=== PATIENT | female | born 1950 | race Caucasian/White ===

== ENCOUNTER 2021-04-24 01:07 | Outpatient (CLI) | payer OTHER, SELFPAY ==
[2021-04-24 12:33] LABS: Source Nasal/Nares
[2021-04-24 16:47] LABS: COVID-19 PCR Negative (Negative)
== END 2021-04-24 01:08 | disposition home or self-care (01) ==
PROVIDERS: PCP Registered Nurse; Visit Provider Ophthalmology
DX: Z20.822 Contact with and (suspected) exposure to COVID-19 (principal); Z01.818 Encounter for other preprocedural examination
CPT/HCPCS: 87635

== ENCOUNTER 2021-04-26 08:11 | Day surgery (SDC) | payer OTHER, SELFPAY ==
[2021-04-26 08:30] VITALS: BP 143/85; PULSE 63; RESP 16; TEMP 36.2; O2SAT 97
[2021-04-26] MEDS: Tropicam./Phenyleph. (1/2.5%) 5 ML BTL OS ×3 (08:40→08:50)
--- NOTE | 2021-04-26 09:33 | W.ANESPRE ---
General Info Date of Service Date Performed: 04/26/21 Height: 5 ft 2 in Weight: 71.7 kg Body Mass Index (BMI): 28.9 Surgical Procedure: Operation Date: 04/26/21 09:55 Proposed Procedure Side Surgeon p Cataract Extraction with IOL Implant Left Louis Bronson MD Meds Allergies and Home Medications Allergies Allergy/AdvReac Type Severity Reaction Status Date / Time Penicillins Allergy Intermediate Skin Rash Verified 04/26/21 08:35 sulfamethoxazole Allergy Intermediate Skin Rash Verified 04/26/21 08:35 [From Bactrim] trimethoprim [From Bactrim] Allergy Intermediate Skin Rash Verified 04/26/21 08:35 aspirin AdvReac Mild Other (See Verified 04/26/21 08:35 Comment) Home Medication Medication Instructions Recorded albuterol sulfate 90 mcg/actuation 2 puff INHALATION Q4H 04/24/21 aerosol inhaler (ProAir HFA) atorvastatin 10 mg tablet 20 mg PO DAILY 04/24/21 cholecalciferol (vitamin D3) 50 50 mcg PO DAILY 04/24/21 mcg (2,000 unit) capsule fluoxetine 20 mg capsule 20 mg PO DAILY 04/24/21 lisinopril 2.5 mg tablet 2.5 mg PO DAILY 04/24/21 loratadine 10 mg tablet 10 mg PO DAILY 04/24/21 mirtazapine 7.5 mg tablet 7.5 mg PO HS 04/24/21 pantoprazole 40 mg tablet,delayed 40 mg PO DAILY 04/24/21 release polyethylene glycol 3350 17 17 g PO DIRECTED PRN 04/24/21 gram/dose oral powder propranolol 40 mg tablet 40 mg PO BID 04/24/21 Current Visit Medications: Current Medications Generic Name Dose Route Start Last Admin Trade Name Freq PRN Reason Stop Dose Admin Acetaminophen 1,000 mg 04/26/21 06:00 Acetaminophen 500 Mg Tab PO Q4H PRN PRN Miscellaneous Medication 0 ml 04/26/21 06:00 Prednisolone 1%, Moxifloxacin 0.5%, Nepafenac 0.1% 5ml Btl OS DIRECTED [facility] Miscellaneous Medication 0 ml 04/26/21 06:00 04/26/21 08:50 Tropicam./Phenyleph. (1/2.5%) 5 Ml Btl OS 1 drp DIRECTED [facility] Administration Tetracaine HCl 0 ml 04/26/21 06:00 Tetracaine 0.5% 4 Ml Btl OS DIRECTED TILA [facility] Medical History Medical History Bilateral carpal tunnel syndrome Costochondritis COVID 04/20/2020 Hepatic cyst History of gastric polyp PVC (premature ventricular contraction) per 2009 holter monitor Uncontrolled hypertension Per pre- op H&P not well controlled bp 149/100, starting lisinopril 2.5mg 04/10/21. Pt. to keep at home log and track BP daily. Pt. stated when she went to to her PCP her mother had just the day before so that is why it had been elevated,. Pt. kept log most recent BP was 134/86, pt. stated the highest systolically was 147 and diastolically it has stayed in the 70's Medical History Comments:: See note regarding elevated BP in history. Instructed pt. to take propranolol AND newly added Lisinopril AM of to keep BP stabilzed DOS. Surgical History Surgical History Hx of bilateral breast reduction surgery Hx of colonoscopy Hx of hysterectomy Tobacco Smoking/Tobacco Use Status: Never Alcohol Alcohol Intake: current Alcohol intake frequency: a few times a week Alcohol type: wine Substance Use Substance use type: does not use Vital Signs and Lab Results Vital Signs Most Recent Vital Signs in EMR: Most Recent Vital Signs Temp Pulse Resp BP Pulse Ox 36.2 C L 63 16 143/85 H 97 04/26/21 08:30 04/26/21 08:30 04/26/21 08:30 04/26/21 08:30 04/26/21 08:30 Lab Results Blood Type / Crossmatch: No Data to Display Complete Blood Count: No Data to Display Complete Metabolic Panel: No Data to Display Liver Function Panel: No Data to Display Coagulation Panel: No Data to Display Cardiac Panel: No Data to Display Arterial Blood Gas: No Data to Display Venous Blood Gas: No Data to Display Pancreas Panel: No Data to Display Thyroid Panel: No Data to Display Infectious Disease: Coronavirus (COVID-19)(PCR) Negative (Negative) 04/24/21 08:51 04/24/21 Coronavirus 2019 Source Nasal/Nares 04/24/21 08:51 04/24/21 Blood Cultures: No Data to Display Toxicology Panel: No Data to Display Anesthesia Assessment and Plan Anesthesia History Personal History: PONV Family History: No Family History of Anesthesia Complications Exercise Tolerance Exercise Tolerance: Metabolic Equivalents>4 Pertinent Negatives Pertinent Negatives: No Symptoms of GERD Cardiac & Pulmonary Exam Cardiac Exam: Normal S1/S2 Heart Sounds Pulmonary Exam: Clear Bilateral Breath Sounds Implantable Cardiac Device Does patient have a Pacemaker or an ICD?: No Airway Exam Known Difficult Airway: No Mallampati Class: 3 Mouth Opening: Narrow (< 3cm) Thyromental Distance: Less than 3 cm Neck Range of Motion: Full ROM Neck Circumference: Normal Teeth Condition: Normal Dentition ASA Classification ASA Score: ASA 2 Emergency Case?: No NPO Status NPO Status: NPO Clears >2 hours, Solids >8 hours Anesthesia Plan Resuscitation Status: Full Code Anesthesia Technique: MAC Anesthesia Airway Planned: Natural Airway Monitors Used: Standard Monitors
[2021-04-26 09:34] VITALS: BMI 28.9
[2021-04-26] MEDS: Tetracaine 0.5% 4 ML BTL OS (09:57)
[2021-04-26] MEDS: Lidocaine 2% Jelly 6 ML SYR (09:58)
[2021-04-26] MEDS: Balanced Salt Soln.-PLUS 500 ML BAG (10:07)
[2021-04-26] MEDS: Duovisc Viscoelastic System EACH 1 EACH (10:08)
[2021-04-26] MEDS: Povidone-Iodine Ophth 30 ML BTL (10:10)
[2021-04-26 10:23] VITALS: BP 97/81; PULSE 56; RESP 16; TEMP 36.5; O2SAT 95
--- NOTE | 2021-04-26 10:26 | W.PM.DSUDISC ---
Discharge Plan Disposition Patient Disposition: HOME Condition: Good Discharge Details Attending Provider: Louis Bronson Primary Care Provider: Eloise Barbosa Home Meds and New Rx's Prescriptions: No Action atorvastatin 10 mg tablet 20 mg PO DAILY 0RF propranolol 40 mg tablet 40 mg PO BID 0RF pantoprazole 40 mg tablet,delayed release (DR/EC) 40 mg PO DAILY 0RF polyethylene glycol 3350 17 gram/dose Powder 17 g PO DIRECTED PRN0RF Rx Instructions: 1 capful with 8 oz of water daily PRN albuterol sulfate [ProAir HFA] 90 mcg/actuation HFA aerosol inhaler 2 puff INHALATION Q4H 0RF fluoxetine 20 mg capsule 20 mg PO DAILY 0RF Label Comments: TAKE 1 CAPSULE DAILY FOR MOOD/ANXIETY lisinopril 2.5 mg tablet 2.5 mg PO DAILY 0RF Label Comments: TAKE 1 TABLET BY MOUTH EVERY DAY FOR BLOOD PRESSURE loratadine 10 mg Tablet 10 mg PO DAILY 0RF mirtazapine 7.5 mg tablet 7.5 mg PO HS 0RF cholecalciferol (vitamin D3) 50 mcg (2,000 unit) capsule 50 mcg PO DAILY 0RF Discharge Instructions Stand Alone Forms: Post-op Topical Cataract, Xiomara Buchanan ([facility]U) Discharge Orders Discharge Orders: Discharge Order (Routine); Ordered 04/26/21 Ordered By: Louis Bronson DS: Diagnosis Discharge Diagnosis (1) Cortical cataract of left eye: Status: Resolved (2) Nuclear sclerotic cataract of left eye: Status: Resolved
--- NOTE | 2021-04-26 10:29 | ROE_ITS ---
Date of service: 04/26/21 Time of Service: 10:29 Operative Note Operative Note DATE OF PROCEDURE: 04/26/21 PRE-OP DIAGNOSIS: Nuclear/cortical cataract, left eye POST-OP DIAGNOSIS: same PROCEDURE: Cataract extraction using phacoemulsification with intraocular lens implant, left eye SURGEON: Louis Bronson ANESTHESIA TYPE: Local By Surgeon and MAC Refer to Anesthesia Record PATHOLOGY: none sent COMPLICATIONS: None Patient was transported to: same day Patient's condition: stable Implants: Gunn[employer] / [employer] Tecnis [id number] Indications: Progressive decreased vision due to cataract, left eye Procedure Description: CATARACT SURGERY OPERATIVE REPORT PREOPERATIVE DIAGNOSIS: 1. Nuclear/cortical cataract, left eye POSTOPERATIVE DIAGNOSIS: Same OPERATION: 1. Cataract extraction using phacoemulsification with posterior chamber intraocular lens implant, left eye. IOL: IOL Mandolin Repair Person/Model: Gunnar [employer] Gunnar / FANG Tecnis [id number] IOL Power: + 26.5 diopters IOL Serial Number: [id number] Optic Diameter: 6.0 mm Haptic/Overall Diameter: 13.0 mm PHACO INFO: TwanChatterflyon Vision System with OZil and Active Fluidics Cumulative Dispersed Energy (CDE): 3.53 seconds SURGEON: Louis Bronson MD, JAZMYN ANESTHESIA: Monitored A [facility] (MAC), with local sub-tenon's anesthetic infiltration COMPLICATIONS: None SPECIMENS: None INDICATIONS FOR PROCEDURE: The patient is a 71-year-old lady with history of diminished visual acuity in her left eye secondary to the development of nuclear and cortical cataract. She is significantly symptomatic that she desires cataract surgery to attempt to imp rove and maximize her vision. PROCEDURE: The correct surgical eye was identified and marked as the left eye and the pupil was dilated in the preoperative area using mydriatics and cycloplegics. The dilated pupil size was 7.0 mm. Oral sedation was administered in the form of an Imprimis MKO Melt (midazolam 3mg/ketamine 25mg/ondansetron 2mg). The patient was brought to the operating room where cardiopulmonary monitoring was instituted and surgical time-out was performed, confirming the correct operative eye and IOL power. Topical anesthesia was administered and ophthalmic povidone-iodine 5% was instilled into the conjunctival fornices. Lidocaine gel was applied to the cornea and the ant-ocular area was prepped with Betadine 10% solution and draped in the usual sterile fashion for intraocular surgery, including an aperture drape. A Tegaderm transparent film dressing was cut in half and used to cover the lashes and lid margins. Care was taken to sequester the lashes and lid margins under the Tegaderm dressing. A lid speculum was placed between the lids of the operative eye and the Twan LuxOR Revalia operating microscope was maneuvered into position. Princess scissors were then used to make a conjunctival buttonhole approximately 6mm posterior to the limbus in the inferonasal quadrant. Blunt dissection was carried out to expose bare sclera, and a blunt-tipped sub-tenon?s anesthesia cannula was introduced and passed posteriorly along the globe where non- preserved plain lidocaine was injected into posterior sub-Tenon?s space. A sideport knife was used to make a paracentesis port superiorly/superiortemporally. Intraocular phenylephrine/lidocaine was injected int the anterior chamber.. The anterior chamber was filled with viscoelastic. A 2.4mm keratome knife was used to create a half-thickness groove at the limbus and then to construct a three-plane near-clear corneal tunnel extending 2.0mm into clear cornea at the 3:00 position. A flap was raised on the anterior capsule and capsulorhexis forceps were used to complete a continuous curvilinear capsulorhexis of 5.0 mm. Balanced salt solution was then used to perform cortical cleaving hy drodissection and nuclear hydrodelineation until the lens could be freely rotated within the capsular bag. The lens nucleus was then disassembled and removed within the capsular bag and iris plane using phacoemulsification. Residual cortical material was removed using the 45-degree angled silicone I/A tip with 0.3mm port. The posterior capsule was carefully polished to remove as much residual lens epithelial cells as safely possible. The capsular bag was then inflated and the anterior chamber deepened with viscoelastic. The lens implant described above was inserted into the capsular bag using the FANG [place] Injector. A Kuglen hook was used to dial the IOL into position. Residual viscoelastic was then removed first from posterior to the IOL, then from the anterior chamber using the I/A handpiece. The lens implant was noted to center nicely within the capsular bag. The incisions were stromally hydrated, and the anterior chamber was reformed using BSS. Then 0.5cc of moxifloxacin 1.0mg/ml were injected into the capsular bag and anterior chamber. The incisions were checked with a Weck spear and found to be secure. Several drops of ophthalmic povidone-iodine 5% were then applied to the eye followed by two drops of Imprimis combination prednisolone/moxifloxacin/nepafenac solution. The drapes were removed and a clear plastic protective eye shield was placed over the eye. The patient was then returned to Same Day Surgery in stable condition.
--- NOTE | 2021-04-26 10:47 | W.ANESPOSTOP ---
Postoperative Evaluation Date, Time and Location Date Performed: 04/26/21 Time Performed: 10:30 Patient Location: Day Surgery Unit Vital Signs Most Recent Imported Vital Signs: Most Recent Vital Signs Temp Pulse Resp BP Pulse Ox 36.5 C 56 L 16 97/81 L 95 04/26/21 10:23 04/26/21 10:23 04/26/21 10:23 04/26/21 10:23 04/26/21 10:23 Pain Score Most Recent Pain Score: Most Recent Pain Score Pain Level 0 04/26/21 10:23 Assessment Mental Status: Awake (Alert & Oriented to Patient Baseline) Airway and Respiratory Function: Patent airway with normal (patient baseline) respiratory exam Cardiovascular Function: Hemodynamically Stable Hydration Status: Adequately Hydrated Nausea & Vomiting: No Nausea or Vomiting Pain: Pt. Denies Any Pain Peripheral Nerve Block: Patient did not receive a nerve block
[2021-04-26 10:55] VITALS: BP 98/61; PULSE 61; RESP 16; TEMP 36.9; O2SAT 94
== END 2021-04-26 11:05 | disposition home or self-care (01) ==
PROVIDERS: PCP Registered Nurse; Visit Provider Ophthalmology
PROC: (CPT 66984; principal; 2021-04-26 09:45)
DX: H25.12 Age-related nuclear cataract, left eye (principal); I10 Essential (primary) hypertension
CPT/HCPCS: 66984; V2632

== ENCOUNTER 2021-05-08 01:20 | Outpatient (CLI) | payer OTHER, SELFPAY ==
[2021-05-08 12:02] LABS: Source Nasal/Nares
[2021-05-08 14:19] LABS: COVID-19 PCR Negative (Negative)
== END 2021-05-08 01:21 | disposition home or self-care (01) ==
LOC: LBO 01:20
PROVIDERS: PCP Registered Nurse; Visit Provider Ophthalmology
DX: Z20.822 Contact with and (suspected) exposure to COVID-19 (principal); Z01.818 Encounter for other preprocedural examination
CPT/HCPCS: 87635; U0005

== ENCOUNTER 2021-05-10 06:49 | Day surgery (SDC) | payer OTHER, SELFPAY ==
[2021-05-10 07:06] VITALS: BP 140/83; PULSE 59; RESP 16; TEMP 36.2; O2SAT 97
[2021-05-10] MEDS: Tropicam./Phenyleph. (1/2.5%) 5 ML BTL OD ×3 (07:12→07:21)
--- NOTE | 2021-05-10 07:13 | W.ANESPRE ---
General Info Date of Service Date Performed: 05/10/21 Height: 5 ft 2 in Weight: 72.1 kg Body Mass Index (BMI): 29.0 Surgical Procedure: Operation Date: 05/10/21 08:40 Proposed Procedure Side Surgeon p Cataract Extraction with IOL Implant Right Louis Bronson MD Meds Allergies and Home Medications Allergies Allergy/AdvReac Type Severity Reaction Status Date / Time Penicillins Allergy Intermediate Skin Rash Verified 05/10/21 07:02 sulfamethoxazole Allergy Intermediate Skin Rash Verified 05/10/21 07:02 [From Bactrim] trimethoprim [From Bactrim] Allergy Intermediate Skin Rash Verified 05/10/21 07:02 aspirin AdvReac Mild Other (See Verified 05/10/21 07:02 Comment) Home Medication Medication Instructions Recorded albuterol sulfate 90 mcg/actuation 2 puff INHALATION Q4H 04/24/21 aerosol inhaler (ProAir HFA) atorvastatin 10 mg tablet 20 mg PO DAILY 04/24/21 cholecalciferol (vitamin D3) 50 50 mcg PO DAILY 04/24/21 mcg (2,000 unit) capsule fluoxetine 20 mg capsule 20 mg PO DAILY 04/24/21 lisinopril 2.5 mg tablet 2.5 mg PO DAILY 04/24/21 mirtazapine 7.5 mg tablet 7.5 mg PO HS 04/24/21 pantoprazole 40 mg tablet,delayed 40 mg PO DAILY 04/24/21 release polyethylene glycol 3350 17 17 g PO DIRECTED PRN 04/24/21 gram/dose oral powder propranolol 40 mg tablet 40 mg PO BID 04/24/21 Current Visit Medications: Current Medications Generic Name Dose Route Start Last Admin Trade Name Freq PRN Reason Stop Dose Admin Acetaminophen 1,000 mg 05/10/21 06:00 Acetaminophen 500 Mg Tab PO Q4H PRN PRN Miscellaneous Medication 0 ml 05/10/21 06:00 Prednisolone 1%, Moxifloxacin 0.5%, Nepafenac 0.1% 5ml Btl OD DIRECTED TILA Miscellaneous Medication 0 ml 05/10/21 06:00 05/10/21 07:12 Tropicam./Phenyleph. (1/2.5%) 5 Ml Btl OD 1 drp DIRECTED TILA Administration Tetracaine HCl 0 ml 05/10/21 06:00 Tetracaine 0.5% 4 Ml Btl OD DIRECTED TILA PFSH Active Problems Active Problems: Problem Status Onset Code Cortical cataract of right eye H26.9 Nuclear sclerotic cataract of right eye H25.11 Nuclear sclerotic cataract of left eye H25.12 Cortical cataract of left eye H26.9 Medical History Medical History Bilateral carpal tunnel syndrome Costochondritis COVID 04/20/2020 Hepatic cyst History of gastric polyp PVC (premature ventricular contraction) per 2009 holter monitor Uncontrolled hypertension Per pre- op H&P not well controlled bp 149/100, starting lisinopril 2.5mg 04/10/21. Pt. to keep at home log and track BP daily. Pt. stated when she went to to her PCP her mother had just the day before so that is why it had been elevated,. Pt. kept log most recent BP was 134/86, pt. stated the highest systolically was 147 and diastolically it has stayed in the 70's Medical History Comments:: See note regarding elevated BP in history. Instructed pt. to take propranolol AND newly added Lisinopril AM of to keep BP stabilzed DOS. Surgical History Surgical History Hx of bilateral breast reduction surgery Hx of colonoscopy Hx of hysterectomy Tobacco Smoking/Tobacco Use Status: Never Alcohol Alcohol Intake: current Alcohol intake frequency: a few times a week Alcohol type: wine Substance Use Substance use type: does not use Vital Signs and Lab Results Vital Signs Most Recent Vital Signs in EMR: Most Recent Vital Signs Temp Pulse Resp BP Pulse Ox 36.2 C L 59 L 16 140/83 97 05/10/21 07:06 05/10/21 07:06 05/10/21 07:06 05/10/21 07:06 05/10/21 07:06 Lab Results Blood Type / Crossmatch: No Data to Display Complete Blood Count: No Data to Display Complete Metabolic Panel: No Data to Display Liver Function Panel: No Data to Display Coagulation Panel: No Data to Display Cardiac Panel: No Data to Display Arterial Blood Gas: No Data to Display Venous Blood Gas: No Data to Display Pancreas Panel: No Data to Display Thyroid Panel: No Data to Display Infectious Disease: Coronavirus (COVID-19)(PCR) Negative (Negative) 05/08/21 08:53 05/08/21 Coronavirus 2019 Source Nasal/Nares 05/08/21 08:53 05/08/21 Blood Cultures: No Data to Display Toxicology Panel: No Data to Display Anesthesia Assessment and Plan Anesthesia History Personal History: No History of Anesthesia Complications Family History: No Family History of Anesthesia Complications Exercise Tolerance Exercise Tolerance: Metabolic Equivalents>4 Pertinent Negatives Pertinent Negatives: No Major Cardiovascular Symptoms or Complaints, No Major Pulmonary Symptoms or Complaints and No History of CVA/TIA Cardiac & Pulmonary Exam Cardiac Exam: Normal S1/S2 Heart Sounds Pulmonary Exam: Clear Bilateral Breath Sounds Implantable Cardiac Device Does patient have a Pacemaker or an ICD?: No Airway Exam Known Difficult Airway: No Mallampati Class: 3 Mouth Opening: Narrow (< 3cm) Thyromental Distance: Less than 3 cm Neck Range of Motion: Full ROM Neck Circumference: Normal Teeth Condition: Normal Dentition ASA Classification ASA Score: ASA 2 Emergency Case?: No NPO Status NPO Status: NPO Clears >2 hours, Solids >8 hours Anesthesia Plan Resuscitation Status: Full Code Anesthesia Technique: MAC Anesthesia Airway Planned: Natural Airway Monitors Used: Standard Monitors
[2021-05-10 07:16] VITALS: BMI 29.0
[2021-05-10] MEDS: Balanced Salt Soln.-PLUS 500 ML BAG (07:38)
[2021-05-10] MEDS: Lidocaine 2% Jelly 6 ML SYR (07:41)
[2021-05-10] MEDS: Duovisc Viscoelastic System EACH 1 EACH (07:41)
[2021-05-10] MEDS: Povidone-Iodine Ophth 30 ML BTL (07:42)
[2021-05-10] MEDS: Tetracaine 0.5% 4 ML BTL OD (07:43)
[2021-05-10 07:55] VITALS: BP 121/75; PULSE 55; RESP 16; TEMP 36.2; O2SAT 95
--- NOTE | 2021-05-10 07:58 | W.PM.DSUDISC ---
Discharge Plan Disposition Patient Disposition: HOME Condition: Good Discharge Details Attending Provider: Louis Bronson Primary Care Provider: Eloise Barbosa Home Meds and New Rx's Prescriptions: No Action atorvastatin 10 mg tablet 20 mg PO DAILY 0RF propranolol 40 mg tablet 40 mg PO BID 0RF pantoprazole 40 mg tablet,delayed release (DR/EC) 40 mg PO DAILY 0RF polyethylene glycol 3350 17 gram/dose Powder 17 g PO DIRECTED PRN0RF Rx Instructions: 1 capful with 8 oz of water daily PRN albuterol sulfate [ProAir HFA] 90 mcg/actuation HFA aerosol inhaler 2 puff INHALATION Q4H 0RF fluoxetine 20 mg capsule 20 mg PO DAILY 0RF Label Comments: TAKE 1 CAPSULE DAILY FOR MOOD/ANXIETY lisinopril 2.5 mg tablet 2.5 mg PO DAILY 0RF Label Comments: TAKE 1 TABLET BY MOUTH EVERY DAY FOR BLOOD PRESSURE mirtazapine 7.5 mg tablet 7.5 mg PO HS 0RF cholecalciferol (vitamin D3) 50 mcg (2,000 unit) capsule 50 mcg PO DAILY 0RF Discharge Instructions Stand Alone Forms: Post-op Topical Cataract, Xiomara Buchanan ([facility]) Discharge Orders Discharge Orders: Discharge Order (Routine); Ordered 05/10/21 Ordered By: Louis Bronson DS: Diagnosis Discharge Diagnosis (1) Cortical cataract of right eye: Status: Resolved (2) Nuclear sclerotic cataract of right eye: Status: Resolved
--- NOTE | 2021-05-10 07:59 | W.PM.OP ---
Date of service: 05/10/21 Time of Service: 07:59 Operative Note Operative Note DATE OF PROCEDURE: 05/10/21 POST-OP DIAGNOSIS: same Nuclear/cortical cataract, right eye PROCEDURE: Cataract extraction using phacoemulsification with intraocular lens implant, right eye SURGEON: Louis Bronson ANESTHESIA TYPE: Local By Surgeon and MAC Refer to Anesthesia Record ESTIMATED BLOOD LOSS: 0 PATHOLOGY: none sent COMPLICATIONS: None Patient was transported to: same day Patient's condition: stable Implants: Gunnar & Gunnar/FANG Tecnis [id number] Indications: Progressive visual loss due to cataract, right eye Procedure Description: CATARACT SURGERY OPERATIVE REPORT PREOPERATIVE DIAGNOSIS: 1. Nuclear/cortical cataract, right eye POSTOPERATIVE DIAGNOSIS: Same OPERATION: 1. Cataract extraction using phacoemulsification with posterior chamber intraocular lens implant, right eye. IOL: IOL Artificial Breast Fabricator/Model: Gunnar & Gunnar / FANG Tecnis [id number] IOL Power: + 26.5 diopters IOL Serial Number: [id number] Optic Diameter: 6.0mm Haptic/Overall Diameter: 13.0mm PHACO INFO: TwanOrbital Tractionon Vision System with OZil and Active Fluidics Cumulative Dispersed Energy (CDE): 3.62 seconds SURGEON: Louis Bronson MD, JAZMYN ANESTHESIA: Monitored Anesthesia Care (MAC), with local sub-tenon's anesthetic infiltration COMPLICATIONS: None SPECIMENS: None INDICATIONS FOR PROCEDURE: The patient is a 71-year-old lady with history of diminished visual acuity in her right eyes secondary to the development of nuclear and cortical cataract. She has already undergone cataract surgery in the left eye and is doing well postoperatively. She now presents for cataract surgery of the right eye. PROCEDURE: The correct surgical eye was identified and marked as the right eye and the pupil was dilated in the preoperative area using mydriatics and cycloplegics. The dilated pupil size was 7.0 mm. Oral sedation was administered in the form of an Imprimis MKO Melt (midazolam 3mg/ketamine 25mg/ondansetron 2mg). The patient was brought to the operating room where cardiopulmonary monitoring was instituted and surgical time-out was performed, confirming the correct operative eye and IOL power. Topical anesthesia was administered and ophthalmic povidone-iodine 5% was instilled into the conjunctival fornices. Lidocaine gel was applied to the cornea and the ant-ocular area was prepped with Betadine 10% solution and draped in the usual sterile fashion for intraocular surgery, including an aperture drape. A Tegaderm transparent film dressing was cut in half and used to cover the lashes and lid margins. Care was taken to sequester the lashes and lid margins under the Tegaderm dressing. A lid speculum was placed between the lids of the operative eye and the Twan LuxOR Revalia operating microscope was maneuvered into position. Princess scissors were then used to make a conjunctival buttonhole approximately 6mm posterior to the limbus in the inferonasal quadrant. Blunt dissection was carried out to expose bare sclera, and a blunt-tipped sub-tenon?s anesthesia cannula was introduced and passed posteriorly along the globe where non-preserved plain lidocaine was injected into posterior sub-Tenon?s space. A sideport knife was used to make a paracentesis port inferotemporally. Intraocular phenylephrine/lidocaine was injected into the anterior chamber. The anterior chamber was filled with viscoelastic. A 2.4mm keratome knife was used to create a half-thickness groove at the limbus and then to construct a three-plane near-clear corneal tunnel extending 2.0mm into clear cornea superiortemporally. A flap was raised on the anterior capsule and capsulorhexis forceps were used to complete a continuous curvilinear capsulorhexis of 5.0 mm. Balanced salt solution was then used to perform cortical cleaving hydrodissection and nuclear hydrodelineation until the lens could be freely rotated within the capsular bag. The lens nucleus was then disassembled and removed within the capsular bag and iris plane using phacoemulsification. Residual cortical material was removed using the I/A handpiece. The posterior capsule was carefully polished to remove as much residual lens epithelial cells as safely possible. The capsular bag was then inflated and the anterior chamber deepened with viscoelastic. The lens implant described above was inserted into the capsular bag using the FANG [place] Injector. A Kuglen hook was used to dial the IOL into position. Residual viscoelastic was then removed first from posterior to the IOL, then from the anterior chamber using the I/A handpiece. The lens implant was noted to center nicely within the capsular bag. The incisions were stromally hydrated, and the anterior chamber was reformed using BSS. Then 0.5cc of moxifloxacin 1.0mg/ml were injected into the capsular bag and anterior chamber. The incisions were checked with a Weck spear and found to be secure. Several drops of ophthalmic povidone-iodine 5% were then applied to the eye followed by two drops of Imprimis combination prednisolone/moxifloxacin/nepafenac solution. The drapes were removed and a clear plastic protective eye shield was placed over the eye. The patient was then returned to Same Day Surgery in stable condition.
--- NOTE | 2021-05-10 08:15 | W.ANESPOSTOP ---
Postoperative Evaluation Date, Time and Location Date Performed: 05/10/21 Time Performed: 07:57 Patient Location: Day Surgery Unit Vital Signs Most Recent Imported Vital Signs: Most Recent Vital Signs Temp Pulse Resp BP Pulse Ox 36.2 C L 55 L 16 121/75 95 05/10/21 07:55 05/10/21 07:55 05/10/21 07:55 05/10/21 07:55 05/10/21 07:55 Pain Score Most Recent Pain Score: Most Recent Pain Score Pain Level 0 05/10/21 07:55 Assessment Mental Status: Awake (Alert & Oriented to Patient Baseline) Airway and Respiratory Function: Patent airway with normal (patient baseline) respiratory exam Cardiovascular Function: Hemodynamically Stable Hydration Status: Adequately Hydrated Nausea & Vomiting: No Nausea or Vomiting Pain: Pt. Denies Any Pain Peripheral Nerve Block: Patient did not receive a nerve block
[2021-05-10 08:25] VITALS: BP 113/66; PULSE 59; RESP 16; TEMP 36.4; O2SAT 95
== END 2021-05-10 08:33 | disposition home or self-care (01) ==
PROVIDERS: PCP Registered Nurse; Visit Provider Ophthalmology
PROC: (CPT 66984; principal; 2021-05-10 08:30)
DX: H25.11 Age-related nuclear cataract, right eye (principal); I49.3 Ventricular premature depolarization; I10 Essential (primary) hypertension
CPT/HCPCS: 66984; V2632

== ENCOUNTER 2021-07-06 16:47 | Emergency (ER) | payer OTHER, SELFPAY ==
[2021-07-06 16:53] VITALS: BP 156/73; PULSE 66; RESP 14; TEMP 37; O2SAT 97
--- NOTE | 2021-07-06 17:00 | DI.RAD_ITS ---
Exam(s) XR KNEE LT 4V+ EXAM: XR KNEE LT 4V+ CLINICAL HISTORY: pain/twisting injury TECHNIQUE: COMPARISON: No exams were available for comparison FINDINGS: Four views were obtained. There is no evidence of acute fracture or dislocation. IMPRESSION: RADIATION DOSE DELIVERED: Total DLP
--- NOTE | 2021-07-06 17:35 | ED.GENADUL_ITS ---
Discharge Plan Disposition Patient Disposition: HOME Condition: Stable Discharge Details Clinical Impression: Knee pain, left Primary Care Provider: Eloise Barbosa ED Provider: Carlos A Goldberg Home Meds and New Rx's Prescriptions: Continued atorvastatin 10 mg tablet 20 mg PO DAILY 0RF propranolol 40 mg tablet 40 mg PO BID 0RF pantoprazole 40 mg tablet,delayed release (DR/EC) 40 mg PO DAILY 0RF polyethylene glycol 3350 17 gram/dose Powder 17 g PO DIRECTED PRN0RF Rx Instructions: 1 capful with 8 oz of water daily PRN albuterol sulfate [ProAir HFA] 90 mcg/actuation HFA aerosol inhaler 2 puff INHALATION Q4H 0RF fluoxetine 20 mg capsule 20 mg PO DAILY 0RF Label Comments: TAKE 1 CAPSULE DAILY FOR MOOD/ANXIETY lisinopril 2.5 mg tablet 2.5 mg PO DAILY 0RF Label Comments: TAKE 1 TABLET BY MOUTH EVERY DAY FOR BLOOD PRESSURE mirtazapine 7.5 mg tablet 7.5 mg PO HS 0RF cholecalciferol (vitamin D3) 50 mcg (2,000 unit) capsule 50 mcg PO DAILY 0RF Discharge Instructions Instructions: Knee Pain (ED) Additional Instructions: X-ray does not reveal any obvious bony pathology. Wear knee immobilizer and use crutches as needed, advance activity as tolerated. Rest, elevate, cool compresses every 2 hours for 20 minutes. Kecm-ois-ksxudxw medications such as Tylenol and/or Motrin as directed for discomfort. Please watch for new or worsening symptoms and return to the ER for any concerns. I have placed you on the orthopedic list, please contact their office Thursday for outpatient reevaluation. As we discussed, if your symptoms persist then further evaluation with MRI may be indicated. Medical Decision Making 71-year-old female reports posterior left knee pain, it began abruptly and she heard and felt a pop when pivoting and twisting to get into a 4 lord, no fall. Has not been able to bear weight. Does not want anything other than Tylenol or Motrin for discomfort. Concern for internal derangement based upon her evaluation. Plan to obtain x-ray and reassess X-ray unremarkable per radiology. Discussed x-ray finding with patient and family. Plan is to place into a knee immobilizer and crutches with teaching. I placed them on the orthopedic list to help expedite outpatient orthopedic care, recommend contacting their office on Thursday. They do understand that outpatient MRI may be indicated for further evaluation of her symptoms. Standard discharge and return precautions were provided This documentation was generated using [employer] dictation system, please disregard any oddities of phrase or misspellings. Medical Records Medical records reviewed: Yes I reviewed the patient's medical records. Imaging Data Radiologic Study: Attestation: I personally reviewed and interpreted this imaging study as follows: Imaging: X-Ray Radiologist's impression: PROCEDURE INFORMATION: Exam: XR Left Knee Exam date and time: 07/06/2021 17:53 Age: 71 years old Clinical indication: Other: Pain, twisting injury TECHNIQUE: Imaging protocol: XR Left knee. Views: 4 or more views. COMPARISON: No relevant prior studies available. FINDINGS: Bones/joints: Trace patellofemoral compartment degenerative changes. No acute fracture or subluxation. Soft tissues: No significant joint effusion. IMPRESSION: 1. No acute bony pathology. 2. Trace patellofemoral compartment degenerative changes. HPI General Mode of arrival: wheelchair . Date/Time Provider Initiated Documentation: 07/06/21 17:07 . Limitations to Documentation: no limitations . Information obtained by: patient and family . History of Present Illness 71 year old F presents to the emergency department with the chief complaint of L knee pain, described as severe, with intensity rated at 8. Quality is described as stabbing and aching, and is localized to the left and lower extremity. Patient reports no radiation. Patient started experiencing this hour(s) (3) and it has been constant. improves with Immobilization improves symptom(s), Movement worsens symptoms . Patient notes no other symptoms.. Patient did receive the following treatments prior to arrival, none Related Data Home Medications Medication Instructions Recorded Confirmed albuterol sulfate 90 mcg/actuation 2 puff INHALATION Q4H 04/24/21 05/08/21 aerosol inhaler (ProAir HFA) atorvastatin 10 mg tablet 20 mg PO DAILY 04/24/21 05/10/21 cholecalciferol (vitamin D3) 50 50 mcg PO DAILY 04/24/21 05/10/21 mcg (2,000 unit) capsule fluoxetine 20 mg capsule 20 mg PO DAILY 04/24/21 05/10/21 lisinopril 2.5 mg tablet 2.5 mg PO DAILY 04/24/21 05/10/21 mirtazapine 7.5 mg tablet 7.5 mg PO HS 04/24/21 05/10/21 pantoprazole 40 mg tablet,delayed 40 mg PO DAILY 04/24/21 05/10/21 release polyethylene glycol 3350 17 17 g PO DIRECTED PRN 04/24/21 05/08/21 gram/dose oral powder propranolol 40 mg tablet 40 mg PO BID 04/24/21 05/10/21 Allergies Allergy/AdvReac Type Severity Reaction Status Date / Time Penicillins Allergy Intermediate Skin Rash Verified 07/06/21 18:43 sulfamethoxazole Allergy Intermediate Skin Rash Verified 07/06/21 18:43 [From Bactrim] trimethoprim [From Bactrim] Allergy Intermediate Skin Rash Verified 07/06/21 18:43 aspirin AdvReac Mild Other (See Verified 07/06/21 18:43 Comment) General Stated Complaint: Orthopedic MAYELA: 4 Review of Systems Constitutional Constitutional: Denies fever(s) and Denies weakness Cardiovascular Cardiovascular: Denies chest pain and Denies dyspnea Respiratory Respiratory: Denies dyspnea Musculoskeletal Musculoskeletal: Reports arthralgias, Denies numbness, Reports stiffness and Denies tingling Integumentary/Breasts Skin/Breast: Denies rash Neurologic Neurologic: Denies numbness, Denies tingling and Denies weakness PFSH All Active Problems Knee pain, left (Acute) Medical History Bilateral carpal tunnel syndrome Costochondritis COVID 04/20/2020 Hepatic cyst History of gastric polyp PVC (premature ventricular contraction) per 2009 holter monitor Uncontrolled hypertension Per pre- op H&P not well controlled bp 149/100, starting lisinopril 2.5mg 04/10/21. Pt. to keep at home log and track BP daily. Pt. stated when she went to to her PCP her mother had just the day before so that is why it had been elevated,. Pt. kept log most recent BP was 134/86, pt. stated the highest systolically was 147 and diastolically it has stayed in the 70's Surgical History Hx of bilateral breast reduction surgery Hx of cataract removal with insertion of prosthetic lens bilateral Hx of colonoscopy Hx of hysterectomy Social History Smoking/Tobacco Use Status: Never Smoking risk assessment performed?: Yes Alcohol Intake: current Alcohol Intake frequency: a few times a week Alcohol type: wine Drug use: Never Substance use type: does not use Do you feel safe at home: Yes Do you feel safe in your relationship?: Yes Exam Const General: cooperative, healthy appearing, comfortable and no acute distress Orientation: alert and awake [facility] Head: normal to inspection, normocephalic and atraumatic Eyes General: appearance normal, both eyes and all related structures Conjunctivae: conjunctivae normal Neck Neck: normal visual inspection, trachea midline and supple Resp Effort & Inspection: normal respiratory effort and able to speak in complete sentences Cardio Rate: regular rate Rhythm: regular rhythm Skin General skin exam: no rashes or lesions noted Neuro General: patient alert, patient awake, moves all extremities and no focal motor deficits Cognition: normal cognition Speech: speech normal Motor: muscle tone normal throughout Sensory Exam: no sensory deficits noted Extrem General: capillary refill normal Other: Left hip, ankle, calf, foot unremarkable. Normal pedal pulse and capillary refill. Knee with normal inspection but diffuse posterior discomfort. Neuro, vascular, tendon intact. No discomfort with varus or valgus stress. The knee examination is extremely guarded secondary to discomfort, positive anterior drawer sign for discomfort, difficult to address instability. Psych Appearance: grossly normal Mental Status: mental status grossly normal Course Vital Signs Vital signs: Vital Signs Temperature 37.0 C 07/06/21 16:53 Pulse 66 07/06/21 16:53 Respiratory Rate 14 07/06/21 16:53 Blood Pressure 156/73 H 07/06/21 16:53 Pulse Oximetry 97 07/06/21 16:53 Temperature 37.0 C 07/06/21 16:53 Temperature Source Skin 07/06/21 16:53 Pulse 66 07/06/21 16:53 Respiratory Rate 14 07/06/21 16:53 Blood Pressure 156/73 H 07/06/21 16:53 Blood Pressure Position Sitting 07/06/21 16:53 Pulse Oximetry 97 07/06/21 16:53 Oxygen Delivery Method Room Air 07/06/21 16:53 Oxygen Flow Rate 0 07/06/21 16:53 Pain Level 8 07/06/21 16:53 Comment 07/06/21 16:53
--- NOTE | 2021-07-06 18:11 | DI.VRAD_ITS ---
PROCEDURE INFORMATION: Exam: XR Left Knee Exam date and time: 07/06/2021 17:53 Age: 71 years old Clinical indication: Other: Pain, twisting injury TECHNIQUE: Imaging protocol: XR Left knee. Views: 4 or more views. COMPARISON: No relevant prior studies available. FINDINGS: Bones/joints: Trace patellofemoral compartment degenerative changes. No acute fracture or subluxation. Soft tissues: No significant joint effusion. IMPRESSION: 1. No acute bony pathology. 2. Trace patellofemoral compartment degenerative changes. Dictated and Authenticated by: Sindi Bowman MD. Ordering:ANN Strauss MD
== END 2021-07-06 19:09 | disposition home or self-care (01) ==
PROVIDERS: Emergency Provider Physician Assistant; PCP Registered Nurse
DX: M25.562 Pain in left knee (principal); X50.9XXA Other and unspecified overexertion or strenuous movements or postures, initial encounter; I10 Essential (primary) hypertension
CPT/HCPCS: 29505; 99284; 73564; 99283

== ENCOUNTER → 2021-07-16 11:03 | Outpatient (BNVA) | payer OTHER, SELFPAY | PROVIDERS: PCP Registered Nurse; Referring Provider Student in an Organized Health Care Education/Training Program; Visit Provider Physician Assistant | DX: M23.92 Unspecified internal derangement of left knee (principal) | CPT/HCPCS: 99202 ==

== ENCOUNTER → 2021-08-09 00:34 | Outpatient (CLI) | payer OTHER, SELFPAY ==
--- NOTE | 2021-08-09 07:30 | DI.MRI_ITS ---
Exam(s) MR LOWER JOINT LT WO EXAM: MR LOWER JOINT LT WO CLINICAL HISTORY: LEFT KNEE PAIN, M25.562. TECHNIQUE: Multiplanar multisequence MRI was performed. COMPARISON: CR,XR XR KNEE LT 4V+ from 07/06/2021 FINDINGS: BONES: Mild contusion medial tibial plateau and minimal high signal in the medial femoral condyle. JOINTS: Minimal cartilage thinning and irregularity over the medial femoral condyle.. A moderate siz e effusion is present. TENDONS: Extensor mechanism: Unremarkable. Medial retinaculum: Unremarkable. Lateral retinaculum: Unremarkable. Popliteus: Unremarkable. MUSCLES: Unremarkable. MENISCI: The medial meniscus shows a tear at the root of the posterior horn.. Mildly increased signa l is noted in the body and posterior horn but does not extend to an articular surface. Anterior horn is intact.. The lateral meniscus is unremarkable. SOFT TISSUES: Small Garcia's cyst. LIGAMENTS: Anterior Cruciate: Unremarkable. Posterior Cruciate: Unremarkable. Medial Collateral:Edema is noted around the medial collateral ligament. No focal ligament disruption is seen. Lateral Collateral: Unremarkable. IMPRESSION: Tear at the root of the posterior horn of the medial meniscus. Medial meniscal sprain. Joint effusi on and small Garcia's cyst. DATA REPOSITORY:
== END ==
PROVIDERS: PCP Registered Nurse; Visit Provider Student in an Organized Health Care Education/Training Program
DX: M25.562 Pain in left knee (principal); M25.462 Effusion, left knee; S83.242A Other tear of medial meniscus, current injury, left knee, initial encounter; M71.22 Synovial cyst of popliteal space [Baker], left knee; S83.8X2A Sprain of other specified parts of left knee, initial encounter
CPT/HCPCS: 73721

== ENCOUNTER → 2021-08-14 13:11 | Outpatient (BNVA) | payer OTHER, SELFPAY | PROVIDERS: PCP Registered Nurse; Referring Provider Registered Nurse; Visit Provider Student in an Organized Health Care Education/Training Program | DX: X58.XXXA Exposure to other specified factors, initial encounter (principal); S83.242A Other tear of medial meniscus, current injury, left knee, initial encounter | CPT/HCPCS: 99214 ==

== ENCOUNTER 2021-09-04 02:01 | Outpatient (CLI) | payer OTHER, SELFPAY ==
[2021-09-04 13:24] LABS: Source Nasal/Nares
[2021-09-04 15:47] LABS: COVID-19 PCR Negative (Negative)
== END 2021-09-04 02:02 | disposition home or self-care (01) ==
PROVIDERS: PCP Registered Nurse; Visit Provider Student in an Organized Health Care Education/Training Program
DX: Z20.822 Contact with and (suspected) exposure to COVID-19 (principal); Z01.818 Encounter for other preprocedural examination
CPT/HCPCS: 87635; U0005

== ENCOUNTER 2021-09-06 10:18 | Day surgery (SDC) | payer OTHER, SELFPAY ==
[2021-09-06] VITALS (11 sets, daily range): BP systolic 120–183; BP diastolic 60–109; PULSE 45–58; RESP 7–21; TEMP 36.4–36.7; O2SAT 94–98; BMI 28.8
[2021-09-06] MEDS: Lactated Ringers 1,000 ML 30 ML IV (11:11)
--- NOTE | 2021-09-06 12:10 | W.ANESPRE ---
General Info Date of Service Date Performed: 09/06/21 Height: 5 ft 2 in Weight: 71.6 kg Body Mass Index (BMI): 28.8 Surgical Procedure: Operation Date: 09/06/21 12:10 Proposed Procedure Side Surgeon p Knee Arthroscopy w/any Indicated Meniscal,Chondral and Synovial Surgery Left Julio Cesar Goode MD Meds Allergies and Home Medications Allergies Allergy/AdvReac Type Severity Reaction Status Date / Time Penicillins Allergy Intermediate Skin Rash Verified 09/06/21 10:48 sulfamethoxazole Allergy Intermediate Skin Rash Verified 09/06/21 10:48 [From Bactrim] trimethoprim [From Bactrim] Allergy Intermediate Skin Rash Verified 09/06/21 10:48 aspirin AdvReac Mild Other (See Verified 09/06/21 10:48 Comment) Home Medication Medication Instructions Recorded albuterol sulfate 90 mcg/actuation 2 puff inhalation Q4H 04/24/21 aerosol inhaler (ProAir HFA) atorvastatin 10 mg tablet 20 mg PO DAILY 04/24/21 cholecalciferol (vitamin D3) 50 50 mcg PO DAILY 04/24/21 mcg (2,000 unit) capsule fluoxetine 20 mg capsule 20 mg PO DAILY 04/24/21 lisinopril 2.5 mg tablet 2.5 mg PO DAILY 04/24/21 mirtazapine 7.5 mg tablet 7.5 mg PO HS 04/24/21 pantoprazole 40 mg tablet,delayed 40 mg PO DAILY 04/24/21 release polyethylene glycol 3350 17 17 g PO DIRECTED PRN 04/24/21 gram/dose oral powder propranolol 40 mg tablet 40 mg PO BID 04/24/21 aspirin 81 mg tablet,delayed 81 mg PO DAILY Prevent blood clot 09/06/21 release 3 days #3 tabs naproxen 250 mg tablet 250 - 500 mg PO BID PRN #40 tabs 09/06/21 oxycodone 5 mg tablet 5 - 10 mg PO Q4H PRN moderate to 09/06/21 severe pain #12 tabs Current Visit Medications: Current Medications Generic Name Dose Route Start Last Admin Trade Name Freq PRN Reason Stop Dose Admin Ringer's Solution 1,000 mls @ 30 mls/hr 09/06/21 06:00 09/06/21 11:11 IV 10/05/21 23:59 30 mls/hr INFUSION TILA Administration Cefazolin Sodium/Dextrose 2 gm in 50 mls @ 100 mls/hr 09/06/21 06:00 Ancef Duplex IVPB 09/06/21 16:00 PREOP TILA IV Miscellaneous Supplies 1 each 09/06/21 06:00 Iv Access IV 10/05/21 23:59 DIRECTED TILA Naproxen 250 - 500 mg 09/06/21 11:30 Naproxen 500 Mg Tab PO BID PRN PRN Oxycodone HCl 5 - 10 mg 09/06/21 11:30 Oxycodone 5 Mg Tab PO Q4H PRN PRN Sodium Chloride 0 ml 09/06/21 06:00 Normal Saline Flush 10 Ml Syr IV 10/05/21 23:59 PRN PRN Sodium Chloride 0 ml 09/06/21 06:00 Normal Saline 10 Ml Vial IJ 10/05/21 23:59 DIRECTED PRN Sterile Water 0 ml 09/06/21 06:00 Water,Injection,Sterile 10 Ml Vial IJ 10/05/21 23:59 DIRECTED PRN PFSH Active Problems Active Problems: Problem Status Onset Code Cortical cataract of left eye H26.9 Nuclear sclerotic cataract of left eye H25.12 Nuclear sclerotic cataract of right eye H25.11 Cortical cataract of right eye H26.9 Acute medial meniscus tear of left knee ~06/2021 S83.242A Medical History Medical History Asthma Bilateral carpal tunnel syndrome ECTR bilateral Costochondritis COVID 04/20/2020 Hepatic cyst History of gastric polyp PVC (premature ventricular contraction) per 2009 holter monitor Uncontrolled hypertension Per pre- op H&P not well controlled bp 149/100, starting lisinopril 2.5mg 04/10/21. Pt. to keep at home log and track BP daily. Pt. stated when she went to to her PCP her mother had just the day before so that is why it had been elevated,. Pt. kept log most recent BP was 134/86, pt. stated the highest systolically was 147 and diastolically it has stayed in the 70's 09/05/21: Pt. states when she went into the office when it was elevated she was under a lot of stress with her mother just passing. Surgical History Surgical History (Reviewed 06/23/22 @ 11:40 by Chente Patel Hx of bilateral breast reduction surgery Hx of cataract removal with insertion of prosthetic lens bilateral Hx of colonoscopy Hx of hysterectomy Tobacco Smoking/Tobacco Use Status: Never Alcohol Alcohol Intake: current Alcohol intake frequency: a few times a week Alcohol type: wine Substance Use Substance use: Never Substance use type: does not use Vital Signs and Lab Results Vital Signs Most Recent Vital Signs in EMR: Most Recent Vital Signs Temp Pulse Resp BP Pulse Ox 36.7 C 58 L 17 127/76 96 09/06/21 10:53 09/06/21 10:53 09/06/21 10:53 09/06/21 10:53 09/06/21 10:53 Lab Results Blood Type / Crossmatch: No Data to Display Complete Blood Count: No Data to Display Complete Metabolic Panel: No Data to Display Liver Function Panel: No Data to Display Coagulation Panel: No Data to Display Cardiac Panel: No Data to Display Arterial Blood Gas: No Data to Display Venous Blood Gas: No Data to Display Pancreas Panel: No Data to Display Thyroid Panel: No Data to Display Infectious Disease: Coronavirus (COVID-19)(PCR) Negative (Negative) 09/04/21 09:54 Coronavirus 2019 Source Nasal/Nares 09/04/21 09:54 Blood Cultures: No Data to Display Toxicology Panel: No Data to Display Anesthesia Assessment and Plan Anesthesia History Personal History: PONV Family History: No Family History of Anesthesia Complications Exercise Tolerance Exercise Tolerance: Metabolic Equivalents>4 Pertinent Negatives Pertinent Negatives: No Symptoms of GERD, No Major Cardiovascular Symptoms or Complaints, No Major Pulmonary Symptoms or Complaints and No History of CVA/TIA Cardiac & Pulmonary Exam Cardiac Exam: Normal S1/S2 Heart Sounds Pulmonary Exam: Clear Bilateral Breath Sounds Implantable Cardiac Device Does patient have a Pacemaker or an ICD?: No Airway Exam Known Difficult Airway: No Mallampati Class: 3 Mouth Opening: Narrow (< 3cm) Thyromental Distance: Less than 3 cm Neck Range of Motion: Full ROM Neck Circumference: Normal Teeth Condition: Normal Dentition ASA Classification ASA Score: ASA 2 Emergency Case?: No NPO Status NPO Status: NPO Clears >2 hours, Solids >8 hours Anesthesia Plan Resuscitation Status: Full Code Anesthesia Technique: General Anesthesia Airway Planned: LMA Monitors Used: Standard Monitors
[2021-09-06] MEDS: ceFAZolin 2 GM/50 ML BAG IVPB (13:59)
[2021-09-06] MEDS: Bupivacaine 0.5% Pres-Free W/EPI 10 ML VIAL (14:33)
[2021-09-06] MEDS: MORPHine 4 MG/ML SYR (14:34)
[2021-09-06] MEDS: EPINEPHrine 30 MG/30 ML VIAL (14:34)
[2021-09-06] MEDS: fentaNYL 100 MCG/2 ML VIAL IVP ×2 (15:12→15:31)
--- NOTE | 2021-09-06 15:26 | W.PM.DSUDISC ---
Discharge Plan Disposition Patient Disposition: HOME Condition: Stable Discharge Details Reason For Visit: Left knee surgery Attending Provider: Julio Cesar Goode Primary Care Provider: Eloise Barbosa Home Meds and New Rx's Prescriptions: New aspirin 81 mg tablet,delayed release (DR/EC) 81 mg PO DAILY 3 Days Qty: 3 0RF naproxen 250 mg tablet 250 - 500 mg PO BID PRNQty: 40 0RF Rx Instructions: take with a meal oxycodone 5 mg tablet 5 - 10 mg PO Q4H MDD 30 mg PRN (Reason: moderate to severe pain) Qty: 12 0RF Continued atorvastatin 10 mg tablet 20 mg PO DAILY propranolol 40 mg tablet 40 mg PO BID pantoprazole 40 mg tablet,delayed release (DR/EC) 40 mg PO DAILY polyethylene glycol 3350 17 gram/dose Powder 17 g PO DIRECTED PRN Rx Instructions: 1 capful with 8 oz of water daily PRN albuterol sulfate [ProAir HFA] 90 mcg/actuation HFA aerosol inhaler 2 puff INHALATION Q4H fluoxetine 20 mg capsule 20 mg PO DAILY Label Comments: TAKE 1 CAPSULE DAILY FOR MOOD/ANXIETY lisinopril 2.5 mg tablet 2.5 mg PO DAILY Label Comments: TAKE 1 TABLET BY MOUTH EVERY DAY FOR BLOOD PRESSURE mirtazapine 7.5 mg tablet 7.5 mg PO HS cholecalciferol (vitamin D3) 50 mcg (2,000 unit) capsule 50 mcg PO DAILY Discharge Instructions Additional Instructions: Surgery: Left knee arthroscopy with partial medial meniscectomy Activity: Weightbearing as tolerated. Advance range of motion as comfort allows. No knee brace or crutches needed as soon as comfortable. Recommend avoiding high-impact activities, pivoting, and squatting for about 4-6 weeks. A physical therapy prescription will be sent electronically to start in 2 to 3 weeks. Prescriptions: Aspirin 81 mg take 1 daily to prevent a blood clot for 3 days Naproxen 250 mg take 1-2 every 12 hours with a meal as needed for moderate pain Oxycodone 5 mg take 1-2 every 4-6 hours as needed for severe pain You may use [id number] Tylenol (acetaminophen) as needed for mild pain. These pain medications may be taken all at once or in different combinations as needed. Also, recommend Colace (docusate) as a stool softener as surgery and pain medicine cause constipation. You may try [id number] diphenhydramine (Benadryl) 25-50 mg nightly as a sleep aid Dressings: Leave dressing in place for 3 days. May then remove and leave open to air or cover incisions with Band-Aids. May shower after 5 days. Follow-up: 10-[address] Goode Let us know right away if you develop any redness, drainage, fevers, chest pain, or trouble breathing. Do not drink alcohol or drive for at least 24 hours after anesthesia. Please call the office during business hours with any questions or concerns. Discharge Orders Discharge Orders: Discharge Order (Routine); Ordered 09/06/21 Ordered By: Julio Cesar Goode DS: Diagnosis Discharge Diagnosis (1) Acute medial meniscus tear of left knee: Status: Acute
--- NOTE | 2021-09-06 15:30 | W.PM.OP ---
Operative Note Operative Note DATE OF PROCEDURE: 09/06/21 PRE-OP DIAGNOSIS: Left knee 1. Medial meniscus tear POST-OP DIAGNOSIS: same PROCEDURE: Left knee 1. Partial medial meniscectomy, CPT #75862 SURGEON: Julio Cesar Goode COMMISSION AUDITOR: None None Refer to Anesthesia Record ESTIMATED BLOOD LOSS: 5 PATHOLOGY: none sent TOURNIQUET TIME: 0 Patient was transported to: PACU Patient's condition: stable Indications: Please see complete medical record for details. Findings: Exam under anesthesia: Full range of motion, no instability Arthroscopic findings: Mild suprapatellar adhesions. Complex posterior horn medial meniscus tear involving partial radial root tear and somewhat horizontal on stellate posterior horn into the posterior horn body junction tearing. Relatively diffuse medial femoral condyle chondromalacia grades 1?2. Intact ACL. Intact lateral meniscus lateral femoral condyle. Moderate localized central undersurface patellar grade 2?3 chondromalacia. Procedure Description: In the operating room, genral anesthesia was induced. The patient was positioned supine on the operating room table. All bony prominences were well-padded. Preoperative antibiotics were administered. The knee was prepped and draped in the usual sterile fashion. The correct patient, procedure, and side of the procedure were all verified prior to incision. Exam under anesthesia was performed. 10 cc of 0.25% bupivacaine containing epinephrine was infiltrated about the planned anteromedial and anterolateral knee arthroscopy portals. The portals were established and a complete diagnostic arthroscopy was performed with relevant findings detailed above. Using a combination of hand instruments including meniscal biters and a power shaver and working through the anteromedial and anterolateral compartments the medial meniscus was debrided of all torn tissue to a stable margin. Care was taken to preserve as much meniscus tissue was possible. The meniscal remnant was probed and found to have a stable peripheral margin, stable root remnant, and no other tears. Mechanical shaver was used to lightly smooth minimal cartilage fibrillations on the medial femoral condyle and central undersurface patella as well as resect a superior suprapatellar pouch synovial adhesion. Under direct arthroscopic visualization an 18-gauge needle was passed into the knee from superolateral into the suprapatellar pouch. The knee was copiously irrigated with arthroscopic fluid until there was a clear effluent before being drained of all fluid. The anteromedial and anterolateral portals were closed in 3-0 Monocryl in a buried interrupted fashion. 20 cc of 0.25% bupivacaine with epinephrine containing 4 mg of morphine was infiltrated into the knee through the previously placed needle. Mastisol, Steri-Strips, and 4 x 4 gauze were applied over the incisions followed by sterile soft roll. The knee was then wrapped gently with an DARIUS comressive bandage. The patient awoke from anesthesia without complication and was transferred to the recovery room in a stable condition.
[2021-09-06] MEDS: Normal Saline 10 ML VIAL IJ (15:47)
[2021-09-06] MEDS: HYDROmorphone 2 MG/ML VIAL IVP ×2 (15:47→16:02)
--- NOTE | 2021-09-06 16:20 | W.ANESPOSTOP ---
Postoperative Evaluation Date, Time and Location Date Performed: 09/06/21 Time Performed: 16:20 Patient Location: PACU Vital Signs Most Recent Imported Vital Signs: Most Recent Vital Signs Temp Pulse Resp BP Pulse Ox 36.5 C 55 L 11 L 179/60 H 95 09/06/21 16:09 09/06/21 16:09 09/06/21 16:09 09/06/21 16:09 09/06/21 16:09 Pain Score Most Recent Pain Score: Most Recent Pain Score Pain Level 7 09/06/21 15:45 Assessment Mental Status: Awake (Alert & Oriented to Patient Baseline) Airway and Respiratory Function: Patent airway with normal (patient baseline) respiratory exam Cardiovascular Function: Hemodynamically Stable Hydration Status: Adequately Hydrated Nausea & Vomiting: No Nausea or Vomiting Pain: Pain is Moderate or Severe Postoperative Pain Management: Pain being addressed with medication Peripheral Nerve Block: Patient did not receive a nerve block
== END 2021-09-06 17:22 | disposition home or self-care (01) ==
PROVIDERS: PCP Registered Nurse; Visit Provider Student in an Organized Health Care Education/Training Program
PROC: (CPT 29870; principal; 2021-09-06 12:00)
DX: M23.222 Derangement of posterior horn of medial meniscus due to old tear or injury, left knee (principal); M22.42 Chondromalacia patellae, left knee
CPT/HCPCS: 29881; J0690; J1885; J2250; J2270; J2704; J3010

== ENCOUNTER → 2021-09-18 09:13 | Outpatient (BNVA) | payer OTHER, SELFPAY | PROVIDERS: PCP Registered Nurse; Referring Provider Registered Nurse; Visit Provider Student in an Organized Health Care Education/Training Program | DX: X58.XXXA Exposure to other specified factors, initial encounter (principal); S83.242A Other tear of medial meniscus, current injury, left knee, initial encounter ==

== ENCOUNTER 2024-11-06 12:24 | Emergency (ER) | payer BC, MEDICARE, SELFPAY ==
[2024-11-06] VITALS (13 sets, daily range): BP systolic 125–162; BP diastolic 57–66; PULSE 53–64; RESP 9–18; O2SAT 94–99
--- NOTE | 2024-11-06 12:30 | DI.CT_ITS ---
Exam(s) CT HEAD CERVICAL SPINE WO EXAM: CT HEAD CERVICAL SPINE WO CLINICAL HISTORY: fall, pain. TECHNIQUE: Imaging Protocol: Axial computed tomography images with coronal and sagittal reformatted images were created and reviewed COMPARISON: No exams were available for comparison FINDINGS: BRAIN: There are no skull fractures. There is complete opacification right maxillary sinus and fluid level in left maxillary sinus. There is also mucoperiosteal thickening in both maxillary sinuses consistent with chronic on going paranasal sinus disease. Mild mucous noted in the left side of the sphenoid sinuses and throughout left-sided ethmoidal air cells. Frontal sinuses are clear. Mastoid air cells are clear and there is no fluid in the middle ear cavities. There is no evidence of intracranial hemorrhage, mass effect, or shift of midline structures. There are no extra-axial fluid collections. The ventricles are not enlarged or shifted and there is no blood within the ventricular system nor within the basal cisterns. CERVICAL SPINE: There is no evidence of fracture nor listhesis. No significant prevertebral soft tissue swelling. There is chronic disc space narrowing at C5-6 and C6-7 levels. Small bilateral Luschka joint osteophytes noted at C5-6 level. Some facet arthropathy is noted, most prominent on the left side at C 3-4 level. There is no significant facet joint malalignment. No significant osseous lesions evident. IMPRESSION: No acute intracranial findings on this noninfused CT scan of the brain.Acute and chronic sinusitis findings as described above. No evidence of cervical spine fracture, malalignment, nor acute compromise of the cervical spinal canal. Multilevel chronic degenerative disc disease noted. RADIATION DOSE DELIVERED: 1,288.86mGy.cm Total DLP DATA REPOSITORY: All CT scans at this facility are submitted to the National Radiology Data Registry (NRDR) Dose Index Registry (DIR) with the [employer] (A[employer]). RADIATION OPTIMIZATION: All CT scans at this facility use at least one of these dose optimization techniques: automated exposure control; mA and/or kV adjustment per patient size (includes targeted exams where dose is matched to clinical indication); or iterative reconstruction.
--- NOTE | 2024-11-06 12:37 | W.ED.GENAD ---
Discharge Plan Disposition Patient Disposition: Home Condition: Stable Discharge Details Clinical Impression: Blunt head trauma, Cervical strain Primary Care Provider: Eloise Barbosa ED Provider: Miguel Angel Gilbert Home Meds and New Rx's Prescriptions: New meclizine 25 mg tablet 25 mg PO BID PRN (Reason: dizziness) Qty: 30 0RF Continued atorvastatin 10 mg tablet 20 mg PO DAILY propranolol 40 mg tablet 40 mg PO BID pantoprazole 40 mg tablet,delayed release (DR/EC) 40 mg PO DAILY polyethylene glycol 3350 17 gram/dose Powder 17 g PO DIRECTED PRN Rx Instructions: 1 capful with 8 oz of water daily PRN albuterol sulfate [ProAir HFA] 90 mcg/actuation HFA aerosol inhaler 2 puff INHALATION Q4H fluoxetine 20 mg capsule 20 mg PO DAILY Patient Comments: TAKE 1 CAPSULE DAILY FOR MOOD/ANXIETY lisinopril 2.5 mg tablet 2.5 mg PO DAILY Patient Comments: TAKE 1 TABLET BY MOUTH EVERY DAY FOR BLOOD PRESSURE mirtazapine 7.5 mg tablet 7.5 mg PO HS cholecalciferol (vitamin D3) 50 mcg (2,000 unit) capsule 50 mcg PO DAILY naproxen 250 mg tablet 250 - 500 mg PO BID PRNQty: 40 0RF Rx Instructions: take with a meal Discharge Instructions Additional Instructions: Your CAT scan did not show any concerning findings at this time. If your stomach symptoms and 5 days follow-up with your primary care provider. You can take 1000 mg of acetaminophen and 600 mg of ibuprofen every 6 hours as needed. If you feel more ill or have new symptoms such as severe abdominal pain or persistent vomiting return to the emergency department for reevaluation. HPI General Mode of arrival: EMS. Date/Time Provider Initiated Documentation: 11/06/24 12:34. Limitations to Documentation: no limitations. Information obtained by: patient. History of Present Illness 74 year old F presents to the emergency department with the chief complaint of fall, head and neck pain, described as moderate, Quality is described as aching, and is localized to the head and neck. Patient reports no radiation. Patient started experiencing this hour(s) (1) and it has been constant. No relieving factors improve symptom(s), No exacerbating factors reported . Patient notes no other symptoms.. Patient did receive the following treatments prior to arrival, none Related Data Home Medications ?Medication ?Instructions ?Recorded ?Confirmed albuterol sulfate 90 mcg/actuation 2 puff inhalation Q4H 04/24/21 09/18/21 aerosol inhaler (ProAir HFA) atorvastatin 10 mg tablet 20 mg PO DAILY 04/24/21 09/18/21 cholecalciferol (vitamin D3) 50 50 mcg PO DAILY 04/24/21 09/18/21 mcg (2,000 unit) capsule fluoxetine 20 mg capsule 20 mg PO DAILY 04/24/21 09/18/21 lisinopril 2.5 mg tablet 2.5 mg PO DAILY 04/24/21 09/18/21 mirtazapine 7.5 mg tablet 7.5 mg PO HS 04/24/21 09/18/21 pantoprazole 40 mg tablet,delayed 40 mg PO DAILY 04/24/21 09/18/21 release polyethylene glycol 3350 17 17 g PO DIRECTED PRN 04/24/21 09/18/21 gram/dose oral powder propranolol 40 mg tablet 40 mg PO BID 04/24/21 09/18/21 naproxen 250 mg tablet 250 - 500 mg (1 - 2 x 250 mg) PO 09/06/21 09/18/21 BID PRN #40 tabs meclizine 25 mg tablet 25 mg PO BID PRN dizziness #30 tabs 11/06/24 Previous Rx's ?Medication ?Instructions ?Recorded naproxen 250 mg tablet 250 - 500 mg (1 - 2 x 250 mg) PO 09/06/21 BID PRN #40 tabs meclizine 25 mg tablet 25 mg PO BID PRN dizziness #30 tabs 11/06/24 Allergies Allergy/AdvReac Type Severity Reaction Status Date / Time Penicillins Allergy Intermediate Skin Rash Verified 11/06/24 12:33 sulfamethoxazole (From Allergy Intermediate Skin Rash Verified 11/06/24 12:33 Bactrim) trimethoprim (From Bactrim) Allergy Intermediate Skin Rash Verified 11/06/24 12:33 lisinopril AdvReac Intermediate Anaphylaxis Verified 11/06/24 12:33 aspirin AdvReac Mild Other (See Verified 11/06/24 12:33 Comment) General Stated Complaint: Trauma MAYELA: 3 Review of Systems All systems reviewed & are unremarkable except as noted in HPI and below Constitutional Constitutional: Denies chills, Denies fever(s) and Denies weakness Cardiovascular Cardiovascular: Denies chest pain and Denies dyspnea Respiratory Respiratory: Denies cough and Denies dyspnea Gastrointestinal Gastrointestinal: Denies abdominal pain, Denies nausea and Denies vomiting Neurologic Neurologic: Denies weakness Exam Const General: no acute distress Orientation: alert [facility] Head: normal to inspection and no palpable skull fracture Ears: external ears normal General nose exam: external nose normal Mouth: moist mucous membranes Eyes General: appearance normal, both eyes and all related structures Neck Neck: normal visual inspection Thyroid: tender Resp Effort & Inspection: normal respiratory effort and able to speak in complete sentences Cardio Rate: regular rate GI Palpation: soft and nontender Skin General skin exam: no rashes or lesions noted Neuro General: patient alert and patient oriented x3 Extrem General: normal to inspection Psych Mental Status: mental status grossly normal Course Vital Signs Vital signs: Vital Signs Pulse 64 11/06/24 12:26 Respiratory Rate 16 11/06/24 12:26 Blood Pressure 162/65 H 11/06/24 12:26 Pulse Oximetry 99 11/06/24 12:26 Pulse 64 11/06/24 12:26 Respiratory Rate 16 11/06/24 12:26 Blood Pressure 162/65 H 11/06/24 12:26 Pulse Oximetry 99 11/06/24 12:26 Pain Level 3 11/06/24 12:26 Medical Decision Making 74-year-old female comes with EMS after she fell. She says she was holding a bag of closing a laptop outside and stepped back on uneven surface and tripped falling backwards and hitting the back of her head on asphalt. Denies loss of consciousness, denies any preceding symptoms to the fall such as chest pain, difficulty breathing or dizziness. She has posterior head pain where she hit her head and also right lateral neck pain. No palpable deformities of the C-spine or step-offs. No chest, abdomen, back pain. No extremity pain. Given her head and neck pain from the fall and we will proceed with CT head and C-spine. CT negative. Patient has had some dizziness which I feel is likely from a mild concussion so I am going to prescribe her meclizine. I removed her c-collar and she had full range of motion of her neck with no midline C-spine tenderness so do not feel she requires further workup for C-spine injury. She has no new pain elsewhere. She is stable for discharge and will follow-up with her PCP if not improving within a week, return precautions given PFS All Active Problems (Updated 11/06/24 @ 14:25 by Miguel Angel Gilbert MD) Cervical strain (Acute) Blunt head trauma (Acute) Acute medial meniscus tear of left knee (Acute ~06/2021) Medical History (Updated 11/06/24 @ 14:25 by Miguel Angel Gilbert MD) Asthma Uncontrolled hypertension Per pre- op H&P not well controlled bp 149/100, starting lisinopril 2.5mg 04/10/21. Pt. to keep at home log and track BP daily. Pt. stated when she went to to her PCP her mother had just the day before so that is why it had been elevated,. Pt. kept log most recent BP was 134/86, pt. stated the highest systolically was 147 and diastolically it has stayed in the 70's 09/05/21: Pt. states when she went into the office when it was elevated she was under a lot of stress with her mother just passing. Costochondritis PVC (premature ventricular contraction) per 2009 holter monitor Hepatic cyst History of gastric polyp COVID 04/20/2020 Bilateral carpal tunnel syndrome ECTR bilateral Surgical History Hx of cataract removal with insertion of prosthetic lens bilateral Hx of colonoscopy Hx of bilateral breast reduction surgery Hx of hysterectomy Social History Smoking/Tobacco Use Status: Never Smoking risk assessment performed?: Yes Alcohol Intake: current Alcohol Intake frequency: a few times a week Alcohol type: wine Drug use: Never Substance use type: does not use Current gender identity: female Do you feel safe at home: Yes Do you feel safe in your relationship?: Yes
[2024-11-06] MEDS: ACETAMINOPHEN 1,000 MG/100 ML BAG 400 MG IVPB (12:48)
[2024-11-06] MEDS: Ondansetron 4 MG/2 ML VIAL IVP (12:48)
--- NOTE | 2024-11-06 13:06 | DI.VRAD_ITS ---
PROCEDURE INFORMATION: Exam: CT Head Without Contrast Exam date and time: 11/06/2024 12:50 PM Age: 74 years old Clinical indication: Other: Fall, pain; Other: Fall pain TECHNIQUE: Imaging protocol: Computed tomography of the head without contrast. Radiation optimization: All CT scans at this facility use at least one of these dose optimization techniques: automated exposure control; mA and/or kV adjustment per patient size (includes targeted exams where dose is matched to clinical indication); or iterative reconstruction. COMPARISON: No relevant prior studies available. FINDINGS: Brain: No hemorrhage. Unremarkable white matter. No mass effect. Cerebral ventricles: No ventriculomegaly. Paranasal sinuses: Chronic right maxillary sinusitis. Fluid level versus mucosal thickening in the left maxillary sinus. Secretions in the left sphenoid sinus and mild mucosal thickening in the left ethmoid air cells. Mastoid air cells: Visualized mastoid air cells are well aerated. Bones: Unremarkable. No acute fracture. Soft tissues: Unremarkable. IMPRESSION: No acute intracranial abnormality. Presumed inflammatory changes in the paranasal sinuses. PROCEDURE INFORMATION: Exam: CT Cervical Spine Without Contrast Exam date and time: 11/06/2024 12:50 PM Age: 74 years old Clinical indication: Other: Fall, pain; Other: Fall pain TECHNIQUE: Imaging protocol: Computed tomography of the cervical spine without contrast. Radiation optimization: All CT scans at this facility use at least one of these dose optimization techniques: automated exposure control; mA and/or kV adjustment per patient size (includes targeted exams where dose is matched to clinical indication); or iterative reconstruction. COMPARISON: No relevant prior studies available. FINDINGS: Bones: No acute fracture. Loss of cervical lordosis is presumably on a degenerative basis.No severe spinal canal stenosis. No significant neural foraminal narrowing. Lungs: Lung apices are grossly clear Soft tissues: Unremarkable. IMPRESSION: No acute cervical spine fracture. Dictated and Authenticated by: Manny Rai MD. Orderin Vladimir Michelle MD
[2024-11-06] MEDS: Meclizine 25 MG TAB PO (13:54)
== END 2024-11-06 15:06 | disposition home or self-care (01) ==
LOC: ER 15:52
PROVIDERS: Emergency Provider Emergency Medicine; PCP Registered Nurse
DX: S09.90XA Unspecified injury of head, initial encounter (principal); S16.1XXA Strain of muscle, fascia and tendon at neck level, initial encounter; W19.XXXA Unspecified fall, initial encounter
CPT/HCPCS: 99284 ×2; 36415; 96375; 96365; 96366; 70450; 72125; J0131; J2405